=== PATIENT | male | born 1955 | race Caucasian/White ===

== ENCOUNTER → 2020-07-01 | Outpatient (CLI) | payer BC, MEDICARE ==
[~2020-07-01] MED LIST: ASPIRIN CHEWABL81 MG PO; AUGMENTIN 875-1 EACH PO; FUROSEMIDE20 MG PO; K-TAB ER10 MEQ PO; LABETALOL HCL100 MG PO; LIPITOR40 MG PO; MISOPROSTOL100 MCG PO; MUCINEX600 MG PO; MUPIROCIN22 GM EXT; OMEGA 3 1,0001 EACH PO; SUPER B-50 COM1 EACH PO; TAMSULOSIN HCL0.4 MG PO; VITAMIN D21250 MCG PO
== END ==
LOC: CT 10:19
DX: C85.80 Other specified types of non-Hodgkin lymphoma, unspecified site (principal); R59.0 Localized enlarged lymph nodes; N20.0 Calculus of kidney; R16.1 Splenomegaly, not elsewhere classified
CPT/HCPCS: 36415; 71260; 82565; Q9967

== ENCOUNTER 2021-01-02 09:39 | Inpatient (IN) | payer BC, MEDICARE ==
[~2021-01-02] VITALS: Ht 177.8 cm; Wt 99.8 kg
[~2021-01-02 09:39] MED LIST changes: -ASPIRIN CHEWABL81 MG PO; -AUGMENTIN 875-1 EACH PO; -FUROSEMIDE20 MG PO; -K-TAB ER10 MEQ PO; -LABETALOL HCL100 MG PO; -LIPITOR40 MG PO; -MISOPROSTOL100 MCG PO; -MUPIROCIN22 GM EXT; -OMEGA 3 1,0001 EACH PO; -SUPER B-50 COM1 EACH PO; -TAMSULOSIN HCL0.4 MG PO; -VITAMIN D21250 MCG PO
[2021-01-02 10:25] LABS: HEMOGLOBIN 13.8 gm/dl (14.0-17.5); RED BLOOD COUNT 4.57 M/UL (4.20-5.50); WHITE BLOOD COUNT 5.5 K/UL (4.5-11.0)
[2021-01-02 10:55] LABS: BUN/CREATININE RATIO 17 (0-10)
[2021-01-02] MEDS ORDERED: LIPITOR40 MG PO (12:11)
[2021-01-02] MEDS ORDERED: TAMSULOSIN HCL0.4 MG PO (12:11)
[2021-01-02] MEDS ORDERED: FUROSEMIDE20 MG PO (12:12)
[2021-01-02] MEDS ORDERED: LABETALOL HCL100 MG PO (12:13)
[2021-01-02] MEDS ORDERED: MISOPROSTOL100 MCG PO (12:14)
[2021-01-02] MEDS ORDERED: VITAMIN D21250 MCG PO (12:15)
[2021-01-02] MEDS ORDERED: K-TAB ER10 MEQ PO (12:16)
[2021-01-02] MEDS ORDERED: ASPIRIN CHEWABL81 MG PO (12:18)
[2021-01-02] MEDS ORDERED: OMEGA 3 1,0001 EACH PO (12:18)
[2021-01-02] MEDS ORDERED: SUPER B-50 COM1 EACH PO (12:19)
[2021-01-03 02:50] LABS: HEMOGLOBIN 12.5 gm/dl (14.0-17.5); RED BLOOD COUNT 4.18 M/UL (4.20-5.50); WHITE BLOOD COUNT 3.3 K/UL (4.5-11.0)
[2021-01-03 03:09] LABS: BUN/CREATININE RATIO 20 (0-10)
[2021-01-04 05:03] LABS: HEMOGLOBIN 11.2 gm/dl (14.0-17.5); RED BLOOD COUNT 3.78 M/UL (4.20-5.50); WHITE BLOOD COUNT 3.9 K/UL (4.5-11.0)
[2021-01-04 05:27] LABS: BUN/CREATININE RATIO 16 (0-10)
[2021-01-04 08:13] LABS: IMMUNOGLOBULIN A, QN, SERUM 60 mg/dL (61-437); IMMUNOGLOBULIN G, QN, SERUM 490 mg/dL (603-1613); IMMUNOGLOBULIN M, QN, SERUM 11 mg/dL (20-172); RPR Non Reactive (Non Reactive)
[2021-01-04 11:44] LABS: HEMOGLOBIN 11.6 gm/dl (14.0-17.5); RED BLOOD COUNT 3.91 M/UL (4.20-5.50); WHITE BLOOD COUNT 4.4 K/UL (4.5-11.0)
[2021-01-04 12:12] LABS: HBSAG SCREEN Negative (Negative); HEP A AB, IGM Negative (Negative); HEP B CORE AB, IGM Negative (Negative); HEP C VIRUS AB <0.1 (0.0-0.9); HIV SCREEN 4TH GENERATION WRFX Non Reactive (Non Reactive)
[2021-01-04 15:51] LABS: ADENOVIRUS F 40/41 Not Detected (Negative); ASTROVIRUS Not Detected (Negative); CAMPYLOBACTER Not Detected (Negative); CLOSTRIDIUM DIFFICILE TOX A/B Not Detected (Negative); CRYPTOSPORIDIUM Not Detected (Negative); E.COLI 0157 Not Detected (Negative); ENTAMOEBA HISTOLYTICA Not Detected (Negative); ENTEROAGGREGATIVE E.COLI (EAEC Not Detected (Negative); ENTEROPATHOGENIC E.COLI (EPEC) Not Detected (Negative); ENTEROTOXIGENIC E.COLI (ETEC) Not Detected (Negative); GIARDIA LAMBLIA Not Detected (Negative); NOROVIRUS GI/GII Not Detected (Negative); PLESIOMONAS SHIGELLOIDES Not Detected (Negative); ROTOVIRUS A Not Detected (Negative); SALMONELLA Not Detected (Negative); SAPOVIRUS Not Detected (Negative); SHIG/ENTEROINVAS.ECOLI (EIEC) Not Detected (Negative); SHIGA-LIK TOX.PRO.E.COLI (STEC Not Detected (Negative); VIBRIO Not Detected (Negative); VIBRIO CHOLERAE Not Detected (Negative); YERSINIA ENTEROCOLITICA Not Detected (Negative)
[2021-01-04 17:08] LABS: FUNGITELL, SERUM 38 pg/mL (<80)
[2021-01-05 03:20] LABS: HEMOGLOBIN 11.7 gm/dl (14.0-17.5); RED BLOOD COUNT 3.89 M/UL (4.20-5.50)
[2021-01-05 03:23] LABS: WHITE BLOOD COUNT 7.6 K/UL (4.5-11.0)
[2021-01-05 04:10] LABS: BUN/CREATININE RATIO 12 (0-10)
[2021-01-06 00:23] LABS: HEMOGLOBIN 11.8 gm/dl (14.0-17.5); RED BLOOD COUNT 3.95 M/UL (4.20-5.50)
[2021-01-06 00:26] LABS: WHITE BLOOD COUNT 9.6 K/UL (4.5-11.0)
[2021-01-06 00:30] LABS: BUN/CREATININE RATIO 12 (0-10)
--- NOTE | 2021-01-06 12:04 | NUR ---
1015 - DR GUERRA AT BEDSIDE TO DO DRAINAGE OF SEVERAL BLISTERS NOTED ON RIGHT 3RD, 4TH, 5TH TOE. DISPOSABLE PAD PLACED UNDER FEET BILATERAL. AREA CLEANED WITH BETADINE SWABS, BLISTERS OPENED WITH SMALL NEEDLE. THICK SEROUS FLUID RELEASED. CULTURE OBTAINED AND SENT TO LAB. NEOSPORIN APPLIED, TEFLA APPLIED, FOOT WRAPPED WITH KERLIX.
[2021-01-07 09:54] LABS: BUN/CREATININE RATIO 20 (0-10)
[2021-01-07] MEDS ORDERED: AUGMENTIN 875-1 EACH PO (15:58)
[2021-01-07] MEDS ORDERED: MUPIROCIN22 GM EXT (15:58)
== END 2021-01-07 17:27 | disposition home or self-care (01) | DRG 871 ==
LOC: ER1 09:39 → CDU 12:12 → PROG CARE 12:12
PROVIDERS: Emergency Medicine; Internal Medicine; Physician Assistant Medical; ADMIT Internal Medicine
DX: A41.9 Sepsis, unspecified organism (principal); A39.81 Meningococcal encephalitis; G93.41 Metabolic encephalopathy; C91.10 Chronic lymphocytic leukemia of B-cell type not having achieved remission; C85.80 Other specified types of non-Hodgkin lymphoma, unspecified site; D80.1 Nonfamilial hypogammaglobulinemia; D61.818 Other pancytopenia; E87.2 Acidosis; D70.9 Neutropenia, unspecified; R50.81 Fever presenting with conditions classified elsewhere; Z20.822 Contact with and (suspected) exposure to COVID-19; R59.1 Generalized enlarged lymph nodes; D69.6 Thrombocytopenia, unspecified; G64 Other disorders of peripheral nervous system; R32 Unspecified urinary incontinence; N40.0 Benign prostatic hyperplasia without lower urinary tract symptoms; N18.9 Chronic kidney disease, unspecified; I12.9 Hypertensive chronic kidney disease with stage 1 through stage 4 chronic kidney disease, or unspecified chronic kidney disease; E78.5 Hyperlipidemia, unspecified; Z86.73 Personal history of transient ischemic attack (TIA), and cerebral infarction without residual deficits; Z86.718 Personal history of other venous thrombosis and embolism; Z79.01 Long term (current) use of anticoagulants; Z82.49 Family history of ischemic heart disease and other diseases of the circulatory system
CPT/HCPCS: 36415; 36600; 70450; 70551; 71045; 80048; 80053; 80074; 80202; 81001; 82140; 82550; 82553; 82784; 82803; 83605; 83690; 83735; 83874; 83880; 84100; 84132; 84439; 84443; 84484; 85007; 85025; 85027; 85610; 85730; 86140; 86592; 86644; 87040; 87075; 87081; 87086; 87389; 87507; 93005; 96374; 96375; 99285; C9113; J0133; J0696; J1442; J1940; J2185; J3370; J3475; J7030; J7050; J7070; U0002

== ENCOUNTER → 2021-01-15 | Outpatient (CLI) | payer BC, MEDICARE ==
[~2021-01-15] MED LIST changes: +ASPIRIN CHEWABL81 MG PO; +AUGMENTIN 875-1 EACH PO; +FUROSEMIDE20 MG PO; +K-TAB ER10 MEQ PO; +LABETALOL HCL100 MG PO; +LIPITOR40 MG PO; +MISOPROSTOL100 MCG PO; +MUPIROCIN22 GM EXT; +OMEGA 3 1,0001 EACH PO; +SUPER B-50 COM1 EACH PO; +TAMSULOSIN HCL0.4 MG PO; +VITAMIN D21250 MCG PO
[2021-01-15 13:26] LABS: RED BLOOD COUNT 4.66 M/UL (4.20-5.50); WHITE BLOOD COUNT 8.3 K/UL (4.5-11.0)
== END ==
LOC: LAB 12:54
PROVIDERS: Internal Medicine Infectious Disease
DX: D61.818 Other pancytopenia (principal)
CPT/HCPCS: 36415; 85025

== ENCOUNTER → 2021-01-15 | Outpatient (CLI) | payer BC, MEDICARE | LOC: WCC 10:45 | DX: S90.412A Abrasion, left great toe, initial encounter (principal); S90.414A Abrasion, right lesser toe(s), initial encounter; I10 Essential (primary) hypertension; R53.1 Weakness; R26.2 Difficulty in walking, not elsewhere classified; C91.10 Chronic lymphocytic leukemia of B-cell type not having achieved remission; Z86.718 Personal history of other venous thrombosis and embolism; Z87.891 Personal history of nicotine dependence; Z88.6 Allergy status to analgesic agent; Z79.899 Other long term (current) drug therapy; X58.XXXA Exposure to other specified factors, initial encounter | CPT/HCPCS: G0463 ==

== ENCOUNTER → 2021-01-29 | Outpatient (CLI) | payer BC, MEDICARE | LOC: WCC 09:47 | DX: S90.41 Abrasion of toe (principal); S90.414D Abrasion, right lesser toe(s), subsequent encounter; I10 Essential (primary) hypertension; R53.1 Weakness; R26.2 Difficulty in walking, not elsewhere classified; Z72.3 Lack of physical exercise | CPT/HCPCS: 97597 ==

== ENCOUNTER → 2021-02-05 | Outpatient (CLI) | payer BC, MEDICARE | LOC: EXRD 02-04 13:30 | DX: S90.414A Abrasion, right lesser toe(s), initial encounter (principal); I73.9 Peripheral vascular disease, unspecified; Z86.718 Personal history of other venous thrombosis and embolism | CPT/HCPCS: 93925 ==

== ENCOUNTER → 2021-02-12 | Outpatient (CLI) | payer BC, MEDICARE | LOC: WCC 10:30 | DX: S90.415D Abrasion, left lesser toe(s), subsequent encounter (principal); S90.414D Abrasion, right lesser toe(s), subsequent encounter; I10 Essential (primary) hypertension; R53.1 Weakness; Z86.718 Personal history of other venous thrombosis and embolism | CPT/HCPCS: 97597 ==

== ENCOUNTER → 2021-02-26 | Outpatient (CLI) | payer BC, MEDICARE | LOC: WCC 09:14 | DX: S90.414D Abrasion, right lesser toe(s), subsequent encounter (principal); S90.41 Abrasion of toe; R53.1 Weakness; Z72.3 Lack of physical exercise; R26.2 Difficulty in walking, not elsewhere classified; I10 Essential (primary) hypertension; Z86.718 Personal history of other venous thrombosis and embolism | CPT/HCPCS: 97597 ==

== ENCOUNTER → 2021-06-04 | Outpatient (CLI) | payer BC, MEDICARE | LOC: CT 10:46 | DX: C85.80 Other specified types of non-Hodgkin lymphoma, unspecified site (principal); R59.1 Generalized enlarged lymph nodes | CPT/HCPCS: 36415; 71260; 82565; Q9967 ==

== ENCOUNTER → 2022-02-12 | Outpatient (CLI) | payer BC, MEDICARE | LOC: CT 10:36 | DX: R31.0 Gross hematuria (principal); N20.0 Calculus of kidney; R59.1 Generalized enlarged lymph nodes; R16.1 Splenomegaly, not elsewhere classified | CPT/HCPCS: Q9967 ==